=== PATIENT | female | born 1975 | race Caucasian/White ===

== ENCOUNTER 2020-01-16 09:00 | Inpatient (IN) | payer MEDICAID ==
[~2020-01-16] VITALS: Ht 160 cm; Wt 83.9 kg
[2020-01-16] MEDS ORDERED: PNV1TABL76 PO (09:23)
[2020-01-16] MEDS ORDERED: CARBOPROST TROMETHAMINE 250 MCG/ML AMPUL IM PRN (09:30)
[2020-01-16] MEDS ORDERED: METHYLERGONOVINE MALEATE 0.2 MG/ML IM PRN (09:30)
[2020-01-16] MEDS ORDERED: MISOPROSTOL 100MCG TABLET VG PRN (09:30)
[2020-01-16] MEDS: LACTATED RINGERS 1,000 ML IV SCH ×2 (09:58→09:59)
[2020-01-16] MEDS ORDERED: CITRIC ACID/SODIUM CITRATE SOLN 30ML UDC PO SCH (10:15)
[2020-01-16] MEDS ORDERED: GLYCOPYRROLATE 0.2 MG/ML 2ML VIAL ONE (10:30)
[2020-01-16] MEDS ORDERED: MORPHINE SULFATE/PF 1MG/ML 10ML AMP ONE (10:30)
[2020-01-16] MEDS ORDERED: EPHEDRINE SULFATE 50MG/ML VIAL ONE (10:30)
[2020-01-16] MEDS ORDERED: OXYTOCIN 10 UNITS/ML 1ML ONE ×2 (10:30→12:39)
[2020-01-16] MEDS ORDERED: CEFAZOLIN SODIUM 1000MG/VIAL ONE (10:30)
[2020-01-16] MEDS ORDERED: ONDANSETRON HCL 4MG/2ML INJ ONE (10:30)
[2020-01-16] MEDS ORDERED: FENTANYL CITRATE/PF 50MCG/ML 2ML VIAL ONE (10:30)
[2020-01-16 10:31] LABS: BASOPHILS % 0.2 % (0.0-2.0); EOSINOPHILS % 0.7 % (0.0-5.0); HEMATOCRIT. 37.4 % (36.0-48.0); HEMOGLOBIN. 12.8 g/dL (12.0-16.0); LYMPHOCYTES % 13.9 % (20.0-50.0); MEAN CORPUSCULAR HEMOGLOBIN 30.7 pg (28.0-32.0); MEAN CORPUSCULAR VOLUME 89.6 fL (81.0-99.0); MEAN PLATELET VOLUME 8.6 fl (7.4-10.4); MONOCYTES % 8.1 % (2.0-8.0); NEUTROPHILS % 77.1 % (40.0-76.0); PLATELET 201 x1000/uL (130-400); RED BLOOD CELL COUNT 4.18 mill/uL (4.2-5.4); RED CELL DISTRIBUTION WIDTH 14.3 % (11.6-14.6)
[2020-01-16 10:33] LABS: CLARITY URINE CLOUDY (CLEAR); COLOR URINE YELLOW (YELLOW); KETONES URINE NEGATIVE (NEGATIVE); LEUKOCYTE ESTERASE URINE TRACE (NEGATIVE); NITRITE URINE NEGATIVE (NEGATIVE); OCCULT BLOOD URINE NEGATIVE (NEGATIVE); PROTEIN URINE NEGATIVE (NEGATIVE); SPECIFIC GRAVITY URINE 1.015 (1.005-1.030); UROBILINOGEN URINE 0.2 E.U./dL (0.2-1.0)
[2020-01-16 10:39] LABS: INR 0.9; PROTHROMBIN TIME 9.8 sec (9.6-11.0)
[2020-01-16 10:56] LABS: *AMPHETAMINES SCREEN URINE NEGATIVE (NEGATIVE); *BARBITURATES SCREEN URINE NEGATIVE (NEGATIVE); *BENZODIAZEPINES SCREEN URINE NEGATIVE (NEGATIVE); *COCAINE SCREEN URINE NEGATIVE (NEGATIVE)
[2020-01-16 10:57] LABS: CANNABINOID URINE SCREEN NEGATIVE (NEGATIVE); METHADONE URINE SCREEN NEGATIVE (NEGATIVE); OPIATES URINE SCREEN NEGATIVE (NEGATIVE); PHENCYCLIDINE URINE SCREEN NEGATIVE (NEGATIVE)
[2020-01-16 11:23] LABS: HEPATITIS B SURFACE ANTIGEN NEGATIVE
[2020-01-16] MEDS ORDERED: DIPHENHYDRAMINE 50MG/ML VIAL ONE (12:38)
[2020-01-16] MEDS ORDERED: KETOROLAC 60MG/2ML VIAL IM ONE (12:38)
[2020-01-16] MEDS ORDERED: DEXT 5%/LR + PITOCIN 20UNITS/L 1,000 ML IV SCH (13:29)
[2020-01-16] MEDS ORDERED: IBUPROFEN 400MG TABLET PO PRN (13:30)
[2020-01-16] MEDS ORDERED: RHO(D) IMMUNE GLOBULIN 300 MCG/SYR IM PRN (13:30)
[2020-01-16] MEDS ORDERED: BISACODYL 10MG SUPP PR PRN (13:30)
[2020-01-16 15:45] VITALS: BP 112/55
[2020-01-16 16:00] VITALS: BP 111/60
[2020-01-16 17:18] VITALS: BP 107/64
[2020-01-16 20:00] VITALS: BP 116/74
[2020-01-16] MEDS: KETOROLAC 30MG/ML VIAL IV PRN ×2 (21:10→23:35)
[2020-01-16 23:29] VITALS: BP 111/63
[2020-01-17 04:00] VITALS: BP 112/68
[2020-01-17 06:34] LABS: BASOPHILS % 0.2 % (0.0-2.0); EOSINOPHILS % 0.3 % (0.0-5.0); HEMATOCRIT. 31.9 % (36.0-48.0); HEMOGLOBIN. 10.7 g/dL (12.0-16.0); LYMPHOCYTES % 7.6 % (20.0-50.0); MEAN CORPUSCULAR HEMOGLOBIN 30.5 pg (28.0-32.0); MEAN CORPUSCULAR VOLUME 90.9 fL (81.0-99.0); MEAN PLATELET VOLUME 8.6 fl (7.4-10.4); MONOCYTES % 6.5 % (2.0-8.0); NEUTROPHILS % 85.4 % (40.0-76.0); PLATELET 170 x1000/uL (130-400); RED BLOOD CELL COUNT 3.51 mill/uL (4.2-5.4)
[2020-01-17 08:08] VITALS: BP 104/62
[2020-01-17] MEDS: IBUPROFEN 800MG TABLET PO PRN (13:43)
[2020-01-17 16:00] VITALS: BP 110/55
[2020-01-17 19:30] VITALS: BP 122/89
[2020-01-18 00:27] VITALS: BP 120/86
[2020-01-18] MEDS: IBUPROFEN 800MG TABLET PO PRN ×2 (00:30→09:04)
[2020-01-18 04:06] VITALS: BP 122/85
[2020-01-18] MEDS ORDERED: IBUP-2030 MT (07:20)
[2020-01-18 08:00] VITALS: BP 117/60
[2020-01-18 09:04] VITALS: BP 122/85
== END 2020-01-18 19:06 | disposition home or self-care (01) | DRG 540 ==
LOC: 8 EST LDRP 09:00 → INTOOBSV 09:00 → OBSVTOIN 09:00 → 8EST 18:36
PROVIDERS: ADMIT Obstetrics & Gynecology; ATTEND Obstetrics & Gynecology
PROC: 10D00Z1 Extraction of Products of Conception, Low, Open Approach (ICD-10-PCS; principal; 2020-01-16)
PROC: 0UB70ZZ Excision of Bilateral Fallopian Tubes, Open Approach (ICD-10-PCS; 2020-01-16)
DX: O34.211 Maternal care for low transverse scar from previous cesarean delivery (principal); D62 Acute posthemorrhagic anemia; Z37.0 Single live birth; O69.81X0 Labor and delivery complicated by cord around neck, without compression, not applicable or unspecified; Z3A.39 39 weeks gestation of pregnancy; Z83.3 Family history of diabetes mellitus; O34.13 Maternal care for benign tumor of corpus uteri, third trimester; D25.2 Subserosal leiomyoma of uterus; Z30.2 Encounter for sterilization; O99.03 Anemia complicating the puerperium
CPT/HCPCS: 36415; 80305; 81003; 85025; 86592; 86703; 86762; 86850; 86900; 87340; 88302; 88307; G0378; J0690; J1200; J1885; J2274; J2405; J3010; J3490